=== PATIENT | male | born 1980 | race Caucasian/White ===

== ENCOUNTER → 2022-09-06 08:41 | Outpatient (BNVA) | payer SELFPAY | PROVIDERS: Visit Provider Internal Medicine | DX: Z02.79 Encounter for issue of other medical certificate (principal) ==

== ENCOUNTER → 2024-08-31 14:31 | Outpatient (BNVA) | payer SELFPAY | PROVIDERS: Visit Provider Physician Assistant Medical | DX: Z02.79 Encounter for issue of other medical certificate (principal); Z13.1 Encounter for screening for diabetes mellitus | CPT/HCPCS: 82947 ==